=== PATIENT | female | born 1945 | race American Indian/Alaskan Native ===

== ENCOUNTER 2021-02-07 08:48 | Outpatient (CLI) | payer MEDICARE ==
--- NOTE | 2021-02-07 10:19 | Mammography Report ---
DIGITAL SCREENING MAMMOGRAM WITH CAD, 02/07/2021 CLINICAL INFORMATION / INDICATION: Routine screening mammography. SCREENING MAMMO TECHNIQUE: Digital bilateral 2D mammography was obtained in the craniocaudal and mediolateral obliqu e projections. This examination was interpreted with the benefit of Computer-Aided Detection analysis . COMPARISON: 10/08/2016 through 02/07/2020. FINDINGS: Breast Density: The breasts are heterogeneously dense, which may obscure small masses. No dominant mass, suspicious calcifications, or architectural distortion in the right breast. There is a 6 mm nodular asymmetry in the left lower inner quadrant near the 7 to 8:00 position in the middle depth 6 cm from the nipple, new since the prior exam. IMPRESSION: Small nodule in the left lower inner quadrant. Left breast ultrasound is recommended for initial evaluation. Spot compression views could be performed if necessary. Follow up recommendation: Ultrasound BI-RADS Category 0: Incomplete. Needs additional imaging evaluation and/or prior mammograms for konrad salazar. A "normal" or negative report should not discourage follow up or biopsy of a clinically significant f inding. A written summary of these findings will be mailed to the patient. The patient will be entered into a mammography reporting system which will generate a reminder letter for the patient's next appointmen t at the appropriate interval. The [employer] recommends yearly mammograms starting at age 40 and continuing as l stevenson as a woman is in good health. Breast MRI is recommended for women with an approximate 20-25% or greater lifetime risk of breast cancer, including women with a strong family history of breast or ova mary jane cancer or who have been treated for Hodgkin's disease. Signer Name: Yifan Nguyen MD Signed: 02/07/2021 10:15 AM Workstation Name: [email or web address]
== END 2021-02-07 08:49 | disposition home or self-care (01) ==
LOC: SPVWC 08:48
PROVIDERS: ATTEND Family Medicine
DX: Z12.31 Encounter for screening mammogram for malignant neoplasm of breast (principal); N63.24 Unspecified lump in the left breast, lower inner quadrant
CPT/HCPCS: 77067

== ENCOUNTER 2021-03-20 09:11 | Outpatient (CLI) | payer MEDICARE ==
--- NOTE | 2021-03-20 10:55 | Ultrasound Report ---
ULTRASOUND BREAST LEFT LIMITED, 03/20/2021 CLINICAL INFORMATION / INDICATION: ABN MAMMO. Patient presents as a callback from screening mammogram for further evaluation of a nodular density in the left breast. TECHNIQUE: Targeted ultrasound evaluation was performed of the area of interest. COMPARISON: Prior mammogram 02/07/2021 FINDINGS: Corresponding with the nodular density seen mammographically, there is a slightly irregular hypoechoi c mass in the left breast 7:00 position located 4 cm from the nipple measuring up to 5 x 5 x 5 mm. A benign skin lesion is seen in the 7:00 position located 10 cm from the nipple, most compatible with a sebaceous cyst. IMPRESSION: 1. A slightly irregular hypoechoic mass in the 7:00 left breast corresponds with the mammographic fin ding and is considered suspicious for malignancy, ultrasound-guided biopsy is recommended. Follow up recommendation: Biopsy BI-RADS Category 4: Suspicious for Malignancy. A normal or "negative" report should not preclude biopsy or follow-up of a clinically suspicious find ing. Signer Name: Kelly Thomson MD Signed: 03/20/2021 10:51 AM Workstation Name: [id number]
== END 2021-03-20 09:12 | disposition home or self-care (01) ==
LOC: SPVWC 09:11
PROVIDERS: ATTEND Family Medicine
DX: N63.24 Unspecified lump in the left breast, lower inner quadrant (principal); R92.8 Other abnormal and inconclusive findings on diagnostic imaging of breast

== ENCOUNTER 2021-04-16 13:20 | Outpatient (CLI) | payer MEDICARE ==
--- NOTE | 2021-04-16 14:59 | Ultrasound Report ---
ULTRASOUND-GUIDED CORE NEEDLE BIOPSY Left BREAST WITH CLIP PLACEMENT INDICATION: Left breast lesion at the 7:00 position. FINDINGS: Informed consent was obtained. The lesion within the left breast at the 7:00 position, 4 cm from the nipple, was identified with ultrasound. The overlying skin was cleansed with chloro prep and local an esthesia was obtained with a 1% lidocaine solution. Under ultrasound guidance a 14-gauge spring loade d core biopsy needle was advanced to the lesion. A total of 5 core samples were obtained. A U-shaped biopsy marker was placed to prosper the site of the biopsy. Specimen samples were placed in formalin and sent to pathology for analysis. Patient tolerated the procedure well and no immediate complications were identified. A post procedure mammogram demonstrates accurate placement of the biopsy marker. IMPRESSION: Technically successful ultrasound-guided core biopsy of left breast lesion at the 7:00 position with accurate placement of a U-shaped biopsy marker. An addendum will be added to this report once pathology results are available. Signer Name: Fer Mahajan MD Signed: 04/16/2021 2:55 PM Workstation Name: [id number]
--- NOTE | 2021-04-16 15:02 | Mammography Report ---
LEFT DIAGNOSTIC MAMMOGRAM INDICATION: Status post left breast biopsy at the 7:00 position. COMPARISON: 02/07/2021. FINDINGS: Left breast CC and LM projection mammograms were obtained. These document accurate location of U-shaped biopsy marker at the 7:00 position, site of previously identified mass. IMPRESSION: Left breast mammograms document accurate location of a U-shaped biopsy marker at the site of recent u ltrasound-guided core biopsy of left breast mass at the 7:00 position. BI-RADS Category 4: Suspicious for Malignancy. Signer Name: Fer Mahajan MD Signed: 04/16/2021 2:57 PM Workstation Name: [id number]
== END 2021-04-16 13:21 | disposition home or self-care (01) ==
LOC: SPVWC 13:20
PROVIDERS: ATTEND Family Medicine
DX: N63.25 Unspecified lump in the left breast, overlapping quadrants (principal); R92.8 Other abnormal and inconclusive findings on diagnostic imaging of breast
CPT/HCPCS: 88305